=== PATIENT | male | born 1970 | race Caucasian/White ===

== ENCOUNTER 2020-01-28 07:43 | Outpatient (REF) | payer OTHER, SELFPAY | END 2020-01-28 07:44 | disposition home or self-care (01) | LOC: HO.LAB 07:43 | PROVIDERS: Visit Provider Internal Medicine | DX: Z20.828 Contact with and (suspected) exposure to other viral communicable diseases (principal) | CPT/HCPCS: C9803; U0003 ==

== ENCOUNTER 2020-02-03 07:09 | Outpatient (REF) | payer OTHER, SELFPAY ==
[2020-02-03 08:00] LABS: COVID-19 Test Negative (Negative)
== END 2020-02-03 07:10 | disposition home or self-care (01) ==
LOC: HO.LAB 07:09
PROVIDERS: Visit Provider Internal Medicine
DX: Z20.828 Contact with and (suspected) exposure to other viral communicable diseases (principal)
CPT/HCPCS: 87635; C9803

== ENCOUNTER 2021-06-27 15:37 | Emergency (ER) | payer OTHER, SELFPAY ==
--- NOTE | ~2021-06-27 | XR_ITS ---
EXAMINATION: XR FINGER, LEFT CLINICAL INFORMATION: Left ring finger injury. Question fracture. COMPARISON: None TECHNIQUE: 3 views of the left ring finger including AP view of the hand FINDINGS: The bones and soft tissues are normal. No fracture. Alignment is anatomic. Joint spaces are maintained. XR/XR finger LT min 2V IMPRESSION: Normal x-ray series of the ring finger. No fracture
[2021-06-27 16:02] VITALS: BP 155/89; PULSE 89; RESP 16; TEMP 36.7; O2SAT 97; BMI 33.4
--- NOTE | 2021-06-27 16:27 | ED_ITS ---
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 Patient states yesterday he slammed the door on his left 5th finger by accident. Patient has slight laceration to tip of finger and dry blood under the nail. Patient really denies any pain. Patient has complete range of motion of finger and sensation. Patient came to the ED to be evaluated. Related Data Allergies Allergy/AdvReac Type Severity Reaction Status Date / Time No Known Allergies Allergy Verified 06/27/21 16:04 Review of Systems Review of Systems: left ring finger injury Yes all other systems are reviewed and are negative [facility] Past Medical History Medical History (Updated 06/28/21 @ 00:01 by Background Daemon) No known health problems Social History Social History Advance Directives: No Advance Directives Information Provided: No Physical Exam ED Vital Signs: Vital Signs - 24 hr 06/27/21 16:02 Temperature 98.0 F Pulse Rate 89 Respiratory Rate 16 Blood Pressure 155/89 H Pulse Oximetry 97 BMI result Body Mass Index 33.4 Const General: cooperative, healthy appearing, comfortable, no acute distress, well developed, alert, awake and Physically active Orientation/consciousness: patient oriented x3 HENMT Head: Yes normal to inspection, Yes No palpable skull fracture present, Yes normocephalic, Yes atraumatic and No abrasion Eyes General: appearance normal, both eyes and all related structures Neck Neck: Yes normal visual inspection, Yes full ROM, Yes no lymphadenopathy, Yes no meningeal signs, Yes trachea midline, Yes supple, No anterior neck swelling and No tender Chest Chest palpation & inspection: normal inspection of the chest and normal palpation of entire chest wall Resp Effort & Inspection: normal respiratory effort and able to speak in complete sentences Auscultation: clear to auscultation bilaterally Cardio Jugular venous distension: no JVD Heart sounds: S1 normal heart sound present and S2 normal heart sound present GI Inspection: Yes normal to inspection and No abdominal wall ecchymosis Palpation (GI): Soft to palpation, not firm, nontender, no guarding and not rigid General: No CVA tenderness and Yes no CVA tenderness Back/Spine/Pelvis Back: no CVA tenderness, No CVA tenderness and No back tenderness Skin General skin exam: no rashes or lesions noted and elasticity normal Neuro General: patient oriented x3, gait normal and no meningeal signs Cranial nerves: Yes CN's II-XII intact bilaterally Extrem General: Yes normal to inspection and Yes full ROM Hand/finger images: 1. Small very super ficial clean laceration more abrasion that occurred yesterday. No active bleeding. Patient has complete range of motion of finger. 2. Positive for subungual hematoma. Nail still attached to nail bed matrix but is raised. nail Will soon come off on it's own. left upper extremity motor, neuro, and vascular exam is intact. Psych Appearance: grossly normal, well kempt and not disheveled Course Course Course Narrative: Sent for x-ray. T dap ordered Reevaluation(s) Reevaluation #1: X-ray came back negative for any fracture. Patient healthy no medical history. Negative for any diabetes or immunocompromise diseases. Patient was educated on trephination for subungual hematoma and possible nail removal. patient preferred not to have trephination uncle hematoma prefer no other to fall off on its own. Nail still connected to matrix and nail bed. No antibiotics needed Time: 17:28 Medical Decision Making MDM Narrative Medical decision making narrative: Subungual hematoma Discharge Plan Discharge Clinical Impression: Subungual hematoma of finger Patient Disposition: Home, Self-Care Instructions: Subungual Hematoma (ED) Additional Instructions: Subungual hematoma will self resolve. Nail will fall off on its own. Return to the ED immediately for any swelling, redness, pus discharge, foul odor, inability to move finger, fever, chills, bluish black discoloration, or any other concerning symptoms. Please follow-up with primary care provider soon as possible. Stand Alone Forms: Work/School Release Interventions: ED Discharge Assessment Last Done: 06/27/21 17:38 Discharge Date/Time: 06/27/21 17:40 Print Language: Montserratian
[2021-06-27] MEDS: Diphth,Pertus(ACell),Tet Adult 0.5 ML SYRINGE IM (16:51)
== END 2021-06-27 17:40 | disposition home or self-care (01) ==
PROVIDERS: Emergency Provider Emergency Medicine; PCP Internal Medicine
DX: S60.142A Contusion of left ring finger with damage to nail, initial encounter (principal); S60.415A Abrasion of left ring finger, initial encounter; W23.0XXA Caught, crushed, jammed, or pinched between moving objects, initial encounter; Y93.9 Activity, unspecified; Y92.9 Unspecified place or not applicable; Y99.9 Unspecified external cause status
CPT/HCPCS: 73140; 90471; 90715; 99283; 99284

== ENCOUNTER 2021-06-29 11:41 | Outpatient (REF) | payer OTHER, SELFPAY ==
[2021-06-29 13:31] LABS: MANUAL DIFF FLAG NO
[2021-06-29 13:45] LABS: Basophils Absolute Auto 0.1 X10*3/uL (0.0-0.2); Basophils Percent Auto 1.1 % (0-2); Eosinophils Absolute Auto 0.5 X10*3/uL (0.0-0.4); Eosinophils Percent Auto 7.2 % (0-4); Hematocrit 45.7 % (42.0-52.0); Hemoglobin 15.3 g/dl (14.0-18.0); Imm Gran Abs Auto 0.02 X10*3/uL (0.00-0.03); Imm Gran Pct Auto 0.3 % (0.0-0.4); Lymphocytes Absolute Auto 1.2 X10*3/uL (1.2-4.9); Lymphocytes Percent Auto 18.5 % (20-40); Mean Corpuscular HGB Conc 33.5 g/dl (31.0-36.0); Mean Corpuscular Hemoglobin 29.8 pg (27.0-33.0); Mean Corpuscular Volume 89.1 fL (80.0-98.0); Mean Platelet Volume 10.8 fL (9.4-12.4); Monocytes Absolute Auto 0.6 X10*3/uL (0.1-1.2); Monocytes Percent Auto 9.5 % (2-11); Neutrophils Absolute Auto 4.1 x10*3/uL (2.0-8.3); Neutrophils Percent Auto 63.4 % (45-73); Platelet Count 262 X10*3/uL (160-400); Red Blood Count 5.13 X10*6/uL (4.60-5.80); Red Cell Distribution Width 13.4 % (11.0-16.0); White Blood Count 6.5 X10*3/uL (4.8-10.8)
[2021-06-29 14:03] LABS: Alanine Aminotransferase 31 U/L (0-40); Albumin Level 4.4 g/dL (3.5-5.0); Alkaline Phosphatase 65 U/L (39-117); Anion Gap 13 (12-20); Aspartate Amino Transferase 18 U/L (5-37); Bilirubin Total 0.3 mg/dL (0.0-1.0); Blood Urea Nitrogen 13 mg/dL (9-16); Carbon Dioxide 25 mmol/L (22-29); Chloride 106 mmol/L (96-108); Estimated Glomerular Filt Rate > 60; Glucose Random 106 mg/dL (60-115); Iron 76 mcg/dL (45-160); Percent Iron Saturation 24 % (15-50); Potassium 4.2 mmol/L (3.3-5.1); Sodium 140 mmol/L (135-145); Total Iron Binding Capacity 323 mcg/dL (228-428); Unsaturated Iron Binding 247 ug/dL
[2021-06-29 14:30] LABS: Ferritin 388 ng/mL (20-250); Free T4 (Free Thyroxine) 0.94 ng/dL (0.71-1.85); Thyroid Stimulating Hormone 2.17 uIU/mL (0.32-4.0); Vitamin D 25-OH Total 20.8 ng/mL (>30)
[2021-06-29 14:44] LABS: Vitamin B12 350 pg/mL (200-900)
[2021-07-04 16:07] LABS: Testosterone, Total 176 ng/dL (250-1100)
== END 2021-06-29 11:42 | disposition home or self-care (01) ==
LOC: HO.MANLDS 11:41
PROVIDERS: PCP Physician Assistant; Visit Provider Physician Assistant
DX: R53.83 Other fatigue (principal)
CPT/HCPCS: 36415; 80053; 82306; 82607; 82728; 82746; 83540; 84402; 84403; 84439; 84443; 85025

== ENCOUNTER 2021-08-20 11:00 | Outpatient (REF) | payer OTHER, SELFPAY ==
[2021-08-20 13:53] LABS: MANUAL DIFF FLAG NO
[2021-08-20 14:02] LABS: Basophils Absolute Auto 0.1 X10*3/uL (0.0-0.2); Basophils Percent Auto 1.2 % (0-2); Eosinophils Absolute Auto 0.3 X10*3/uL (0.0-0.4); Eosinophils Percent Auto 6.1 % (0-4); Hematocrit 45.6 % (42.0-52.0); Imm Gran Abs Auto 0.02 X10*3/uL (0.00-0.03); Imm Gran Pct Auto 0.4 % (0.0-0.4); Lymphocytes Absolute Auto 1.2 X10*3/uL (1.2-4.9); Lymphocytes Percent Auto 23.1 % (20-40); Mean Corpuscular HGB Conc 32.9 g/dl (31.0-36.0); Mean Corpuscular Hemoglobin 29.8 pg (27.0-33.0); Mean Corpuscular Volume 90.5 fL (80.0-98.0); Mean Platelet Volume 10.5 fL (9.4-12.4); Monocytes Absolute Auto 0.4 X10*3/uL (0.1-1.2); Monocytes Percent Auto 8.3 % (2-11); Neutrophils Absolute Auto 3.1 x10*3/uL (2.0-8.3); Neutrophils Percent Auto 60.9 % (45-73); Platelet Count 266 X10*3/uL (160-400); Red Blood Count 5.04 X10*6/uL (4.60-5.80); White Blood Count 5.1 X10*3/uL (4.8-10.8)
[2021-08-20 14:30] LABS: Alanine Aminotransferase 32 U/L (0-40); Albumin Level 4.3 g/dL (3.5-5.0); Alkaline Phosphatase 55 U/L (39-117); Anion Gap 14 (12-20); Aspartate Amino Transferase 21 U/L (5-37); Bilirubin Total 0.5 mg/dL (0.0-1.0); Blood Urea Nitrogen 12 mg/dL (9-16); Calcium 9.6 mg/dL (8.4-10.2); Carbon Dioxide 25 mmol/L (22-29); Chloride 105 mmol/L (96-108); Estimated Glomerular Filt Rate > 60; Glucose Random 116 mg/dL (60-115); Iron 126 mcg/dL (45-160); Percent Iron Saturation 37 % (15-50); Potassium 4.5 mmol/L (3.3-5.1); Sodium 139 mmol/L (135-145); Total Iron Binding Capacity 338 mcg/dL (228-428); Total Protein 7.9 g/dL (6.5-8.0); Unsaturated Iron Binding 212 ug/dL
[2021-08-20 14:46] LABS: Folate 7.6 ng/mL (> or = 4.0); Vitamin B12 317 pg/mL (200-900)
[2021-08-20 14:52] LABS: Ferritin 377 ng/mL (20-250); Thyroid Stimulating Hormone 2.51 uIU/mL (0.32-4.0); Vitamin D 25-OH Total 35.6 ng/mL (>30)
[2021-08-27 09:02] LABS: Testosterone, Free 60.6 pg/mL (35.0-155.0); Testosterone, Total 228 ng/dL (250-1100)
== END 2021-08-20 11:01 | disposition home or self-care (01) ==
LOC: HO.MANLDS 11:00
PROVIDERS: Visit Provider Physician Assistant
DX: R53.83 Other fatigue (principal)
CPT/HCPCS: 36415; 80053; 82306; 82607; 82728; 82746; 83540; 84402; 84403; 84439; 84443; 85025

== ENCOUNTER → 2024-04-05 13:39 | Outpatient (BNV) | payer OTHER, SELFPAY | PROVIDERS: PCP Physician Assistant; Visit Provider Radiology Diagnostic Radiology | DX: R05.9 Cough, unspecified (principal) | CPT/HCPCS: 71260 ==

== ENCOUNTER 2024-06-04 15:32 | Outpatient (REF) | payer OTHER, SELFPAY ==
--- NOTE | ~2024-06-04 | CT_ITS ---
CLINICAL HISTORY: chronic cough CT chest without contrast Comparison: CT/SR - CT CHEST W IV CON - 04/05/24 13:56 EST Findings: Normal heart size. No significant pericardial effusion. Calcific coronary artery disease: None. Stable shotty mediastinal lymph nodes. No mediastinal masses or fluid collections. Mild bronchial wall thickening. Improvement in the reticular nodular opacities right base likely inflammatory. No pneumothorax or pleural effusions, plaques or calcifications. Central airways are patent. No bronchiectasis. No thyroid nodules. No chest wall masses. No axillary adenopathy. Hepatic steatosis. No acute fractures or pathologic bone lesions. Impression: 1. Stable bronchial wall thickening. Improvement in the reticular nodular opacities right lower lobe likely resolving inflammatory process. No airspace disease. No pleural effusion. 2. Hepatic steatosis. This document has been electronically signed by: Montrell Wright MD on 06/07/2024 10:51:43
--- OUTSIDE RECORDS SUMMARY | 2024-06-04 16:41 | XMS_ITS ---
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 Generated for Bessie barnes/Cesar/eTransmitting on:?06/04/2024 04:41 PM EDT
--- OUTSIDE RECORDS SUMMARY | 2024-06-04 16:41 | XMS_ITS ---
Author Organization [facility] Address [address] [place] [address] Care Team Providers Care Director Custom Name Role Phone Stephon Zuniga MD Primary Care Provider Ervin Louis Unavailable [phone] Allergies No Known Allergies REASON FOR VISIT Heel pain Social History Tobacco Use: Social History Observation Description Date Details (start date - stop date) Never Smoker NA - NA Tobacco Use/Smoking Question Answer Notes Are you a: nonsmoker Additional Findings: Tobacco Non-User Current no n-smoker Tobacco use other than smoking: Question Answer Notes Are you an other tobacco user? No Problems Problem Type SNOMED Code ICD Code Onset Dates Problem Status W/U Status Risk Notes Problem Interstitial myositis (43339287) Interstitial myositis of left foot (M60.172) Active confirmed Vital Signs Height 5 ft 8 in in 06/27/2023 Weight 220 lbs 06/27/2023 BMI 33.45 kg/m2 06/27/2023 Encounters Encounter Location Date Provider Diagnosis [facility] [address] [place] [address] 06/27/2023 Ervin Neri Pain in left foot M79.672 ; Plantar fasciitis of left foot M72.2 ; Calcaneal spur, left foot M77.32 ; Interstitial myositis of left foot M60.172 and Bursitis of left foot M77.52 Assessments Encounter Date Diagnosis (ICD Code) Assessment Notes Treatment Notes Treatment Clinical Notes Section Notes 06/27/2023 Pain in left foot (ICD-10 - M79.672) 06/27/2023 Plantar fasciitis of left foot (ICD-10 - M72.2) Patient Educated with: HEEL CORD STRETCHES.pdf (HEEL CORD STRETCHES.pdf) Patient Educated with: RICE THERAPY.pdf (RICE THERAPY.pdf) 06/27/2023 Calcaneal spur, left foot (ICD-10 - M77.32) 06/27/2023 Interstitial myositis of left foot (ICD-10 - M60.172) 06/27/2023 Bursitis of left foot (ICD-10 - M77.52) Plan Of Treatment Treatment Notes Assessment Notes Plantar fasciitis of left foot Patient E ducated with: HEEL CORD STRETCHES.pdf (HEEL CORD STRETCHES.pdf) Patient Educated with: RICE THERAPY.pdf (RICE THERAPY.pdf) Pending Test Test Name Order Date X ray : Foot, left 3V 06/27/2023 Next Appt Details Follow Up: prn, Reason: Per Pt Request Progress Notes * Maciej LARA PDOB:[birth year] (52 yo M)Acc No.[id number]:06/27/2023 Progress Notes Patient:?Maciej Lara P Provider:?Ervin Neri DPM :1970???Age:52 Y???Sex:Male Arthur e:06/27/2023 Address:[address] [place], [place] [id number] Pcp:Stephon Zuniga MD Subjective: * Chief Complaints: * ???Heel pain * HPI: ???Heel pain:?Location:?Proximal plantar aspect of Heel, LEFT.?Duration:?several months.?Course:?worse.?Aggrevated:?standing, walking, walking first thing in the morning/after rest.?Treatments:?rest/alter normal daily activity , ice , medication ( Motrin prn).? * ROS:?General/Constitutional:?Nausea?denies.?Vomiting?denies.?Hunger Thirst?denies.?Loss appetite?denies.?Chills?denies.?Fatigue?denies.?Fever?denies.?Night Sweats?denies.?Unexplained weight loss?denies.?Unexplained weight gain?denies.?HEENTM:?Dentures?denies.?Dizziness?denies.?Glasses/contacts?admits.?Retinopathy?de nies.?Blurred/double vision?denies.?TMJ?denies.?Discharge/drainage?denies.?Implants?denies.?Sore throat?denies.?Dental implants?denies.?Hard of hearing ?denies.?Difficulty chewing/swallowing/speaking?denies.?Nose bleeds?denies.?Sore mouth?denies.?Respiratory:?On Oxygen?denies.?Pneumonia/pleurisy?denies.?Bronchitis?denies.?Emphysema?denies.?C oughing?denies.?Cough blood?denies.?Shortness of breath?denies.?Wheezing?denies.?Cardiovascular:?Pacemaker?denies.?MVP?denies.?WPW?denies.?CHF?denies.?Heart attack?denies.?Septal defect?denies.?Rapid beat?denies.?Chest pain ?denies.?Atrial Fib.?denies.?Murmur/Palpitations?denies.?Gastrointestinal:?Hemorrhoids?denies.?Stomach/Abdominal pain?denies.?Dark blood stool?denies.?Irritable bowel ?denies.?Constipation?denies.?Diarrhea?denies.?Hematology:?Swelling?denies.?Clots?denies.?Varicose Veins?denies.?Bruising?denies.?Bleeding problem?denies.?Genitourinary:?Blood urine?denies.?Frequent/Painfu/urination/bladder control?denies.?Kidney stones?denies.?Infection (UTI)?denies.?Nephropathy?denies.?sex trans dis (STD)?denies.?Prostate?denies.?Musculoskeletal:?Hammertoes?denies.?Bunions?denies.?Back Pain?denies.?Muscle Cramps/ Resting?denies.?Muscle cramps / walking?denies.?Generalized aches and pains?denies.?Weakness?denies.?Integ.:?Echols?denies.?Scars?denies.?Corns/calluses?denies.?Ingrown nails?denies.?Painful nails?denies.?Open Sores?denies.?Rashes?denies.?Neurologic:?Difficulty sleeping?denies.?Brain disorder?denies.?Numbness?denies.?Balance trouble?denies.?Confusion?denies.?Fainting/blackouts?denies.?Tingling?denies.?Tr emors?denies.? * Medical History:? * Surgical History:?colon 04/16 * Hospitalization/Major Diagno stic Procedure:?Denies Past Hospitalization * Family History:?Mother: mark choi?Father: , diagnosed with Other malignant neoplasm of unspecified site.? * Social History:?Tobacco Use:?Tobacco Use/Smoking?Are you a:?nonsmoker ?Additional Findings: Tobacco Non-User?Current non-smoker ?Tobacco use other than smoking?Are you an other tobacco user??No ???Miscellaneous:?Caffeine: yes, frequency: 3x a day. ?Marital status: single. 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 * Medications:?None * Allergies:?N.K.D.A.yes[Aller gies Verified] Objective: * Vitals:?Ht: 5 ft 8 in, Wt: 2 20, BMI:33.45, Shoe size: 10.5 w. * Examination: ???Heel Pain: ?INSPECTION:? Pain on Palpation to Plantar Fascia med. and central bands, intrinsic musc., infra-calcaneal bursa, and med calc tubercle , LEFT foot, No pain: posterior/superior heel, achilles bursa/tendon, sinus tarsi, peroneals, or with lateral heel compression; no limited STJ ROM, calor, or ecchymosis.?Orthopedic: ?MUSCLE STRENGTH:?5/5 all groups in a symmetrical fashion , B/L.?GAIT ABNORMALITY:?antalgic.?FOOT MORPHOLOGY:?Pes Cavus structure, Decreased Ankle joint dorsiflexion ROM, knee extended.?X-Rays - IMAGING REPORT: ?Clinical Indication(s):? Evaluate for Fracture, Evaluate Biomechanical Deformity.?Views:? 3 views of Foot, LAT, LO, MO, LEFT.?Findings:? normal bone and soft tissue density consistent for patients age and sex, navicular/cuneiform plantar subluxation with anterior cyma line, positive infra-calcaneal exostosis, no coalitions identified.?Foot structure:? reveals excess pronation with, anterior break in cyme line, increased talar declination, decreased calcaneal inclination.?Fracture:?Negative fractures identified.?Neurological: ?SENSORY:?Neurological exam reveals intact sensorium, pain sensation normal, vibration sensation intact, pinprick sensation is normal in the lower extremities, Pt denies, anesthesia, burning, paresthesia, tingling, B/L.?TINEL'S COMPRESSION:?Negative tarsal tunnel, oj pedis, and medial calcaneal nerves.?DEEP TENDON REFLEXES:?Achilles, 2/4, B/L.?General Examination: ?GENERAL APPEARANCE:?Reveals a pleasant, alert, well-nourished, well- developed, well hydrated individual, who demonstrates proper attention to hygiene/body habitus, and is in no acute distress, Pt serves as own?historian for office visit today.?ORIENTED:?person, place, and time.?Vascular: ?DP PULSES:?3/4, B/L.?PT PULSES:?3/4, B/L.?CAPILLARY FILL TIME:?immediate, all digits, B/L.?SKIN TEMPERTURE GRADIENT OF THE LOWER EXTERMITIES:?warm to cool, proximal to distal, B/L.?HAIR GROWTH/TEXTURE/ELASTICITY/TURGOR:?normal, B/L.?PIGMENTATION:?normal, B/L.?EDEMA:?absent, B/L.?Dermatologic: ?SKIN FINDINGS:?Skin exam reveals normal texture, elasticity, and turgor. There are no masses. The interspaces are clear.? 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 Plan: * Treatment: 2.?Plantar fasciitis of left foot? Notes: Patient Educated with: HEEL CORD STRETCHES.pdf (HEEL CORD STRETCHES.pdf) Patient Educated with: RICE THERAPY.pdf (RICE THERAPY.pdf)?? * Procedure Codes:?92444 X-RAY EXAM OF LEFT FOOT 3V, Modifiers: 26 , LT * Preventive Medicine:? ??Counseling:?Discussion:?-04: Office or other outpatient visit for the evaluation and management of a new patient, which required a medically appropriate history and/or examination and MODERATE level of DECISION MAKING for: 1 OR MORE CHRONIC PROBLEM(S) THATS WORSENING, 2 STABLE CHRONIC PROBLEMS, A NEWLY DIAGNOSED PROBLEM WITH UNCERTAIN PROGNOSIS, AN ACUTE COMPLICATED INJURY WITH MULTIPLE TREATMENT OPTIONS, OR AN ACUTE PROBLEM WITH ACCOMPANYING SYSTEMIC SYMPTOMS, THAT POSE(S) A MODERATE RISK OF MORBIDITY. THIS CONDITION MAY ALSO INCLUDE RX DRUG MANAGEMENT, OR A DECISON FOR MINOR SURGERY. The visit on the day of the encounter encompassed interpreting the data and educating the patient as to the nature of their condition, treatment options available according to their individual PMH, meds, allergies, and overall health/living conditions, as well as any potential risks or complications that may occur from a failure to adhere to, and participate in, the recommended course of therapy. The discussion included a complete verbal, and/or written explanation of the examination results, any x-rays taken, the proposed diagnosis, and outline of the treatment plan. A schedule for future care needs was also explained. The patient verbalized an understanding of the instructions at this time and agreed to be an active participant in their treatment. If the patient should think of any questions or concerns after the visit, I have encouraged the patient to call the office.?Heel pain:?FASCIITIS: I explained to the patient the possible etiologies of Plantar Fasciitis including foot type/shoegear/activity level/exercise routine and the risks/benefits of all the different treatment options for heel pain including: No treatment at all, Rest, Ice, NSAIDs(only if well tolerated after meals), New/supportive Shoegear, Strappings and Tapings, Stretching exercises, Deep Tissue Massage, Heel cups/cushions, Arch support/shoe inserts, Custom orthoses, Topical analgesics including Aspercream/Voltaren gel, Night splint AFO for am stiffness, Cortisone injection therapy, Cast boot with crutches/cane/or walker for assisted ambulation, Physical Therapy, EPAT/ESWT, Interfil injection therapy, as well as surgical [place]/Endoscopic Fasciitomy surgical procedures if needed. Recommendations were made to limit barefoot walking, eliminate wearing nonsupportive shoegear (i.e. flip-flops or sandals, or a shoe with an easily bendable, foldable, or twistable sole) and wear shoegear with a good solid sole, a supportive arch, and plenty of room for an insert/orthotic if necessary. If wearing sandals was required by the patient, we recommended orthopedic sandals such as Orthoheel or Birkenstock even while in the home. If the patient wore heels in the past, we recommended they continue, but eliminate the use of flats. The advantages and disadvantages of each option were discussed and the patients questions re: types of shoegear, custom vs prefabricated inserts, activity level, PO vs Topical medications (and their respective potential complications/drug interactions/side effects), and consistency in home treatment regimens for optimal success were answered to their satisfaction. Literature detailing plantar fasciitis and the various treatment options were dispensed and reviewed.?Orthotics:?I explained to the patient the benefits of OT use. I explained that orthoses are medically necessary to decrease the foot pain through proper mechanical control, support of their foot , decrease stretch/strain on the plantar fascia.?P.R.I.C.E.:?The patient was counseled on the use of P.R.I.C.E. and NSAIDS (if well tolerated) to aid in the recovery from their painful condition.?Shoe Gear Counseling:?The patient and I reviewed the types of shoes they should be wearing. My recommendation included obtaining a well-fitted shoe with a good supportive, non-foldable nor twistable sole, plenty of toe/room for the forefoot, and proper arch support. Based on todays examination, I recommended the patient look for new shoes, by having their feet professionally measured. We discussed that generally the best time of the day for a shoe fitting is the afternoon. Different shoes types and brands to best match the patients occupation and vocation were discussed. Specific brand selection will be up to the patient, their individual foot condition/deformities, and fit. The patient and I reviewed the standard new shoe break in period by wearing them for a few hours a day while checking for redness or sores as wear time is increased. The patient verbally confirmed to understanding the information discussed.?Stretching Exercises:?Stretching and deep tissue massage exercises for the patients injury/diagnosis were discussed and demonstrated, handouts were dispensed.? * Follow Up:?prn (Reason: Per Pt Request) * Images: * Sign off status: Completed true * Provider:?Ervin Neri DPM Date:?2023 Generated for Bessie barnes/Cesar/eTransmitting on:?06/04/2024 04:41 PM EDT History and Physical Notes * HPI (History of Present Illness) Category Sub-Category Detail Notes Category Not es Heel pain Duration: several months Location: Proximal plantar asp ect of Heel, LEFT Aggravated: standing, walking, w alking first thing in the morning/after rest Course: worse Treatments: rest/alter normal da grabiel activity , ice , medication ( Motrin prn) Examination Category Sub-Category Detail Notes Category Not es Neurological SENSORY: Neurological exa m reveals intact sensorium, pain sensation normal, vibration sensation intact, pinprick sensation is normal in the lower extremities, Pt denies, anesthesia, burning, paresthesia, tingling, B/L TINEL'S COMPRESSION: Negative tarsal sabino eben, oj pedis, and medial calcaneal nerves DEEP TENDON REFLEXES: Achilles, 2/4, B/L Dermatologic SKIN FINDINGS: Skin exam reveal s normal texture, elasticity, and turgor. There are no masses. The interspaces are clear Orthopedic GAIT ABNORMALITY: antalgic FOOT MORPHOLOGY: Pes Cavus structure, Decreased Ankle joint dorsiflexion ROM, knee extended MUSCLE STRENGTH: 5/5 all groups in a symmetrical fashion , B/L General Examination GENERAL APPEARANCE: Reveals a pleasant, alert, well- nourished, well-developed, well hydrated individual, who demonstrates proper attention to hygiene/body habitus, and is in no acute distress, Pt serves as own historian for office visit today ORIENTED: person, place, and t rhianna Vascular DP PULSES (B): 3/4, B/L PT PULSES (B): 3/4, B/L CAPILLARY FILL TIME: immediate, all digi ts, B/L TEMPERTURE GRADIENT (C): warm to cool, p roximal to distal, B/L TROPHIC CONDITION-TEXTURE/ELASTICITY/TURGOR/HAIR GROWTH (B): normal, B/L EDEMA (C): absent, B/L PIGMENTATION: normal, B/L X-Rays - IMAGING REPORT Findings: normal b one and soft tissue density consistent for patients age and sex, navicular/cuneiform plantar subluxation with anterior cyma line, positive infra-calcaneal exostosis, no coalitions identified Fracture: Negative fractures i dentified Foot structure: reveals excess prona tion with, anterior break in cyme line, increased talar declination, decreased calcaneal inclination Views: 3 views of Foot, LAT , LO, MO, LEFT Clinical Indication(s): Evaluate for Fra cture, Evaluate Biomechanical Deformity Heel Pain INSPECTION: Pain on Palpatio n to Plantar Fascia med. and central bands, intrinsic musc., infra-calcaneal bursa, and med calc tubercle , LEFT foot, No pain: posterior/superior heel, achilles bursa/tendon, sinus tarsi, peroneals, or with lateral heel compression; no limited STJ ROM, calor, or ecchymosis
--- OUTSIDE RECORDS SUMMARY | 2024-06-04 16:41 | XMS_ITS ---
Author Organization [facility] Address [address] [address] Care Team Providers Care Recycling Operator Name Role Phone TANIKA Delong Primary Care Provider Unavailab PATT Cano Unavailable [phone] Allergies Allergen (clinical drug ingredient) Drug/Non Drug Allergy documented on EMR Reaction Allergy Type Onset Date Status amoxicillin / clavulanate Augmentin diarrhea Drug Allergy Active REASON FOR VISIT PCP Referral for 2nd opinion on plantar fasciitis Medications Medication SIG (Take, Route, Fr equency, Duration) Notes Start Date End Date Status Testosterone 1.62 % 1 pump to skin in morning to shoulder, upper arms or abdomen Transdermal Once a day Not-Taking Tadalafil 20 MG 1 tablet as needed O rally Once a day Active Ibuprofen 800 MG 1 tablet with food o r milk as needed Orally every 8 hrs Not -Taking Problems Problem Type SNOMED Code ICD Code Onset Dates Problem Status W/U Status Risk Notes Problem [id number] Plantar fasciitis, bilateral (M72.2) Active confirmed Vital Signs Temperature 97.4 degrees Fahrenheit 02/06/20 24 Heart Rate 84 /min 02/06/2024 Respiratory Rate 16 /min 02/06/2024 Height 5ft 8in in 02/06/2024 Weight 238.4 lbs 02/06/2024 BMI 36.24 kg/m2 02/06/2024 Encounters Encounter Location Date Provider Diagnosis [facility] [address] [place] [id number] 02/06/2024 PATT MARTÍNEZ Plantar fasciitis, bilateral M72.2 ; Pain in right foot M79.671 and Pain in left foot M79.672 Assessments Encounter Date Diagnosis (ICD Code) Assessment Notes Treatment Notes Treatment Clinical Notes Section Notes 02/06/2024 Plantar fasciitis, bilateral (ICD-10 - M72.2) This is an outpatient visit for evaluation and management of a new patient, which required appropriate review of pertinent medical history, review of any previous imaging, review of all previous records, and examination and decision-making. Time was 45 minutes spent in review of all these facets including face to face discussion with the patient regarding my findings and in discussion of a current and future treatment plan. I reviewed the results of his x-rays we discussed his high arch type. I also reviewed he accessory sesamoids on both feet. Discussed the pathology of plantar fasciitis, what that means and how it affects the patient's ADL. Reviewed stretching and icing exercises with the patient, handout dispensed, and patient instructed to perform twice daily for the next 6 weeks. Recommended starting a course of NSAIDS with the patient. Discussed proper shoe gear with the patient and recommended over the counter inserts, handout dispensed. I also recommended he avoid barefoot walking. We discussed physical therapy, ECSWT, PRP injections, and steroid injections. He is going to start physical therapy and cryotherapy for the plantar fasciitis by his house. I recommended a follow-up in 8 weeks. If no real improvement, we discussed trying a steroid injection. He is in agreement with this plan. 02/06/2024 Pain in right foot (ICD-10 - M79.671) 02/06/2024 Pain in left foot (ICD-10 - M79.672) Plan Of Treatment Treatment Notes Assessment Notes Plantar fasciitis, bilateral This is an outpatient visit for evaluation and management of a new patient, which required appropriate review of pertinent medical history, review of any previous imaging, review of all previous records, and examination and decision-making. Time was 45 minutes spent in review of all these facets including face to face discussion with the patient regarding my findings and in discussion of a current and future treatment plan. I reviewed the results of his x-rays we discussed his high arch type. I also reviewed he accessory sesamoids on both feet. Discussed the pathology of plantar fasciitis, what that means and how it affects the patient's ADL. Reviewed stretching and icing exercises with the patient, handout dispensed, and patient instructed to perform twice daily for the next 6 weeks. Recommended starting a course of NSAIDS with the patient. Discussed proper shoe gear with the patient and recommended over the counter inserts, handout dispensed. I also recommended he avoid barefoot walking. We discussed physical therapy, ECSWT, PRP injections, and steroid injections. He is going to start physical therapy and cryotherapy for the plantar fasciitis by his house. I recommended a follow-up in 8 weeks. If no real improvement, we discussed trying a steroid injection. He is in agreement with this plan. Pending Test Test Name Order Date X ray : Foot, left 3v 02/06/2024 X ray : Foot, right 3v 02/06/2024 Next Appt Details Follow Up: 2 Months, Reason: Progress Notes * Maciej EASTONDOB:1970 (53 yo M)Acc No.[id number]:02/06/2024 Consult note Patient:?Maciej EASTON Provider:?Patt Martínez DPM :1970???Age:53 Y???Sex:Male Arthur e:02/06/2024 Phone: Address:[address] [place] [id number] Pcp:TANIKA Delong Subjective: * Chief Complaints: * ???PCP Referral for 2nd opin ion on plantar fasciitis * HPI: ???Constitutional:? This 53 y/o male presents to my office with a complaint of bilateral heel pain for approximately 1 year. He denies any trauma or injury to his feet. He states the pain started in the left heel, but it is now in both heels. He has tried changing his shoes and wearing inserts without improvement. He has tried stretching exercises with limited improvement. He went to his PCP care team, and they prescribed him ibuprofen 800mg, but it only provides temporary relief. He did see another switch maker in July who just told him to keep using the inserts and stretching. He describes the pain as sharp and sometimes burning sensation. He was very active and usually goes on long hikes. He has been unable to do so since this problem started. He has no other foot complaints this visit. Allergies and medical history reviewed. * ROS:?GENERAL: Pt denies nausea, fever, vomiting, chills, or shortness of breath. Pt in NAD. ALLERGY: patient denies any new allergy HEME/ONC: patient denies any bleeding or clotting disorders CARDIOLOGY: pt denies chest pain, palpitations LUNGS: pt denies shortness of breath ABDOMEN: patient denies any bloating, abdominal pain, or swelling MUSCULOSKELETAL: See HPI, has left sided joint pain SKIN: see HPI, otherwise no lesions, rash or itching NEURO: No persistent headache, weakness or numbness PSYCH: patient denies any current anxiety or depression The remainder of the review of systems is noncontributory. * Medical History:? * Surgical History:?colonoscop y 03/26colon resection 2013 * Hospitalization/Major Diagno stic Procedure:?colon resection 2013 * Family History:?Father: panc reatic cancer, hypertension.? * Social History:?tobacco: no alcohol: yes, occasional. * Medications:?TakingTadalafil 20 MG Tablet 1 tablet as needed Orally Once a day Taking Tadalafil 20 MG Tablet 1 tablet as needed Orally Once a day Not- TakingTestosterone 1.62 % Gel 1 pump to skin in the morning to shoulder, upper arms or abdomen Transdermal Once a day Ibuprofen 800 MG Tablet 1 tablet with food or milk as needed Orally every 8 hrs Medication List reviewed and reconciled with the patientNot- Taking Testosterone 1.62 % Gel 1 pump to skin in the morning to shoulder, upper arms or abdomen Transdermal Once a day Not-Taking Ibuprofen 800 MG Tablet 1 tablet with food or milk as needed Orally every 8 hrs Medication List reviewed and reconciled with the patient * Allergies:?Augmentin: vale ea - Allergyken[Allergies Verified] Objective: * Vitals:?Wt:238.4lbs, Ht: 5ft 8in, BMI:36.24Index, HR:84/min, Temp:97.4F, RR:16/min, Ht-cm: 172.72, Wt-k.14 kg. * Examination: ???General Examination: ???GENERAL: Patient appears well nourished, with NAD. ?VASCULAR: Dorsalis pedis pulses are 2/4 bilaterally and Posterior tibial pulses are 2/4 bilaterally. Capillary filling time within normal limits the digits. Each foot temperature is within normal limits. ?NEUROLOGICAL: Sharp/dull sensation intact bilaterally, position sense intact bilaterally to the tibial tuberosity. ?ORTHOPEDIC: Good muscle strength 4+/5 of all flexors and extensors. Dorsi flexion of ankle ,0 degrees, plantar flexion WNL. No muscle atrophy. Cavus foot type bilaterally. No pain on palpation of the distal Achilles bilaterally, no pain on compression of the heels. Tenderness on palpation of the plantar heel bilaterally. ?DERMATOLOGICAL: No masses, openings, or skin lesions noted. Normal skin temperature, normal skin turgor. ?BIOMECHANICS: STJ ROM limited, MTJ ROM limited, 1st MPJ ROM limited. On weight-bearing, cavus foot type. ?SHOES: sneakers. Therapeutic Interventions: Assessment: * Assessment: 1.?Plantar fasciitis, bilate ral - M72.2 (Primary)?2.?Pain in right foot - M79.671?3.?Pain in left foot - M79.672? Plan: * Treatment: ?Imaging: X ray : Foot, right 3v* RIGHT FOOT WEIGHT BEARING X- RAYS 3 VIEWS. There is evidence of bipartite sesamoids under the 1st metatarsal head. Slight subluxation of the interphalangeal joint of the right hallux. Adductovarus and hammer toes of toes 2,3,4,5. Synostosis of the distal and middle phalanx of the 5th toe. There are accessory sesamoids noted plantar to all lesser metatarsal heads. On the lateral view, hammering of all 5 toes. There is an increased calcaneal inclination angle consistent with a cavus foot type. No fracture noted. Notes: This is an outpatient visit for evaluation and management of a new patient, which required appropriate review of pertinent medical history, review of any previous imaging, review of all previous records, and examination and decision-making. Time was 45 minutes spent in review of all these facets including face to face discussion with the patient regarding my findings and in discussion of acurrent and future treatment plan. I reviewed the results of his x-rays we discussed his high arch type. I also reviewed he accessory sesamoids on both feet. Discussed the pathology of plantar fasciitis, what that means and how it affects the patient's ADL.Reviewed stretching and icing exercises with the patient, handout dispensed, and patient instructedto perform twice daily for the next 6 weeks. Recommended starting a course of NSAIDS with the patient. Discussed proper shoe gear with the patient and recommended over the counter inserts, handout dispensed. I also recommended he avoid barefoot walking. We discussed physical therapy, ECSWT, PRP injections, and steroid injections. He is going to start physical therapy and cryotherapy for the plantar fasciitis by his house. I recommended a follow-up in 8 weeks. If no real improvement, we discussed trying a steroid injection. He is in agreement with this plan. ??2.?Pain in right foot?Imaging: X ray : Foot, right 3v* RIGHT FOOT WEIGHT BEARING X- RAYS 3 VIEWS. There is evidence of bipartite sesamoids under the 1st metatarsal head. Slight subluxation of the interphalangeal joint of the right hallux. Adductovarus and hammer toes of toes 2,3,4,5. Synostosis of the distal and middle phalanx of the 5th toe. There are accessory sesamoids noted plantar to all lesser metatarsal heads. On the lateral view, hammering of all 5 toes. There is an increased calcaneal inclination angle consistent with a cavus foot type. No fracture noted. 3.?Pain in left foot?Imaging: X ray : Foot, left 3v* LEFT FOOT WEIGHT BEARING X-R AYS 3 VIEWS. There is evidence of bipartite sesamoids under the 1st metatarsal head. Adductovarus and hammer toes of toes 2,3,4,5. Synostosis of the distal and middle phalanx of the 5th toe. There are accessory sesamoids noted plantar to all lesser metatarsal heads. On the lateral view, hammering of all 5 toes. There is an increased calcaneal inclination angle consistent with a cavus foot type. Small plantar calcaneal bone spur noted on the lateral view. No fracture noted. * Procedure Codes:?04881 X-RAY EXAM OF FOOT 3 Views, Units: 2.00 * Follow Up:?2 Months * Billing Information: * Visit Code:? 70522 Office Visit, New Pt., Level 3. * Procedure Codes:? 61616 X-RAY EXAM OF FOOT 3 Views. Units: 2.00. * Sign off status: Completed true * Provider:?Patt Martínez DPM Date:? 02/06/2024 Generated for Bessie barnes/Cesar/Robyn on:?06/04/2024 04:41 PM EDT History and Physical Notes * HPI (History of Present Illness) Category Sub-Category Detail Notes Category Not es Constitutional This 53 y/o m holger presents to my office with a complaint of bilateral heel pain for approximately 1 year. He denies any trauma or injury to his feet. He states the pain started in the left heel, but it is now in both heels. He has tried changing his shoes and wearing inserts without improvement. He has tried stretching exercises with limited improvement. He went to his PCP care team, and they prescribed him ibuprofen 800mg, but it only provides temporary relief. He did see another switch maker in July who just told him to keep using the inserts and stretching. He describes the pain as sharp and sometimes burning sensation. He was very active and usually goes on long hikes. He has been unable to do so since this problem started. He has no other foot complaints this visit. Allergies and medical history reviewed. Examination Category Sub-Category Detail Notes Category Not es General Examination GENERAL: Patient appears well nourished, with NAD. VASCULAR: Dorsalis pedis pulses are 2/4 bilaterally and Posterior tibial pulses are 2/4 bilaterally. Capillary filling time within normal limits the digits. Each foot temperature is within normal limits. NEUROLOGICAL: Sharp/dull sensation intact bilaterally, position sense intact bilaterally to the tibial tuberosity. ORTHOPEDIC: Good muscle strength 4+/5 of all flexors and extensors. Dorsi flexion of ankle ,0 degrees, plantar flexion WNL. No muscle atrophy. Cavus foot type bilaterally. No pain on palpation of the distal Achilles bilaterally, no pain on compression of the heels. Tenderness on palpation of the plantar heel bilaterally. DERMATOLOGICAL: No masses, openings, or skin lesions noted. Normal skin temperature, normal skin turgor. BIOMECHANICS: STJ ROM limited, MTJ ROM limited, 1st MPJ ROM limited. On weight-bearing, cavus foot type. SHOES: sneakers
--- OUTSIDE RECORDS SUMMARY | 2024-06-04 16:41 | XMS_ITS | Patient Health Record ---
Author Organization [facility] Address [address] [address] Care Team Providers Care Sports Management Internship Name Role Phone TANIKA Delong Primary Care Provider Unavailab JENNIFER Cano Unavailable [phone] Allergies Allergen (clinical drug ingredient) Drug/Non Drug Allergy documented on EMR Reaction Allergy Type Onset Date Status amoxicillin / clavulanate Augmentin diarrhea Drug Allergy Active Reason For Referral No Information Medications Medication SIG (Take, Route, Fr equency, Duration) Notes Start Date End Date Status Ibuprofen 800 MG 1 tablet with food o r milk as needed Orally every 8 hrs Not -Taking Testosterone 1.62 % 1 pump to skin in morning to shoulder, upper arms or abdomen Transdermal Once a day Not-Taking Tadalafil 20 MG 1 tablet as needed O rally Once a day Active Problems Problem Type SNOMED Code ICD Code Onset Dates Problem Status W/U Status Risk Notes Problem [id number] Plantar fasciitis, bilateral (M72.2) Active confirmed Vital Signs Heart Rate 84 /min 02/06/2024 Temperature 97.4 degrees Fahrenheit 02/06/2024 Respiratory Rate 16 /min 02/06/2024 Height 5ft 8in in 02/06/2024 Weight 238.4 lbs 02/06/2024 BMI 36.24 kg/m2 02/06/2024 Encounters Encounter Location Date Provider Diagnosis [facility] [address] [address] 02/06/2024 JENNIFER STEPHEN Plantar fasciitis, bilateral M72.2 ; Pain in right foot M79.671 and Pain in left foot M79.672 [facility] [address] [address] 01/13/2024 JENNIFER STEPHEN Assessments Encounter Date Diagnosis (ICD Code) Assessment Notes Treatment Notes Treatment Clinical Notes Section Notes 02/06/2024 Pain in right foot (ICD-10 - M79.671) 02/06/2024 Plantar fasciitis, bilateral (ICD-10 - M72.2) [...] agreement with this plan. 02/06/2024 Pain in left foot (ICD-10 - M79.672) Plan Of Treatment Pending Test Test Name Order Date X ray : Foot, left 3v 02/06/2024 X ray : Foot, right 3v 02/06/2024 Insurance Providers Payer Name Payer Address Payer Phone Subscriber Number Group Number Insured Name Patient Relationship to Insured Coverage Start Date Coverage End Date [facility] [address] [place], [place] [phone] [id number] Maciej Easotn Self - patient is the insured Medical (General) History Medical History History ICD Code malignant tumor of colon primary malignant neoplasm of ascending colon hypogonadism acute sinusitis paronychia neck pain cervical radiculopathy hand pain foot pain fatigue fracture of foot, right pain in right foot testosterone level below reference range lateral epicondylitis of left humorous + COVID 2021 COVID vaccinated X 2 (Moderna) Surgical History Surgery Date(Month/Year) colonoscopy 03/26 colon resection 2013 Hospitalization History Reason Date(Month/Year) colon resection 2013
--- OUTSIDE RECORDS SUMMARY | 2024-06-04 16:41 | XMS_ITS ---
Author Organization [facility] Address [address] [place] [address] Care Team Providers Care Elementary School Teacher'S Aide Name Role Phone Stephon Zuniga MD Primary Care Provider Ervin Louis Unavailable [phone] Tim Jeffery Unavailable [phone] Social History Tobacco Use: Social History Observation Description Date Details (start date - stop date) Never Smoker NA - NA Tobacco Use/Smoking Question Answer Notes Are you a: nonsmoker Additional Findings: Tobacco Non-User Current no n-smoker Alcohol Screen Question Answer Notes Did you have a drink containing alcohol in the p ast year? Yes Points 0 Interpretation Negative Tobacco use other than smoking: Question Answer Notes Are you an other tobacco user? No Vital Signs Height 5 ft 8 in in 07/21/2023 Weight 220 lbs 07/21/2023 BMI 33.45 kg/m2 07/21/2023 Encounters Encounter Location Date Provider Diagnosis [address] [address] 07/21/2023 Tim Jeffery Plan Of Treatment No Information Progress Notes * Maciej LARA PDOB:[birth year] (53 yo M)Acc No.[id number]:07/21/2023 Progress Notes Patient:?Maciej LARA Provider:?Tim Jeffery DPM :1970???Age:52 Y???Sex:Male Arthur e:07/21/2023 Address:[address] [place], [place] [id number] Pcp:Stephon Zuniga MD Subjective: * Chief Complaints: * ??? * ROS:?General/Constitutional:?Nausea?denies.?Vomiting?denies.?Hunger Thirst?denies.?Loss appetite?denies.?Chills?denies.?Fatigue?admits.?Fever?denies.?Night Sweats?denies.?Unexplained weight loss?denies.?Unexplained weight gain?denies.?HEENTM:?Dentures?denies.?Dizziness?denies.?Glasses/contacts?admits.?Retinopathy?de nies.?Blurred/double vision?denies.?TMJ?denies.?Discharge/drainage?denies.?Implants?denies.?Sore throat?denies.?Dental implants?denies.?Hard of hearing ?denies.?Difficulty chewing/swallowing/speaking?denies.?Nose bleeds?denies.?Sore mouth?denies.?Respiratory:?On Oxygen?denies.?Pneumonia/pleurisy?denies.?Bronchitis?denies.?Emphysema?denies.?C oughing?denies.?Cough blood?denies.?Shortness of breath?denies.?Wheezing?denies.?Cardiovascular:?Pacemaker?denies.?MVP?denies.?WPW?denies.?CHF?denies.?Heart attack?denies.?Septal defect?denies.?Rapid beat?denies.?Chest pain ?denies.?Atrial Fib.?denies.?Murmur/Palpitations?denies.?Gastrointestinal:?Hemorrhoids?denies.?Stomach/Abdominal pain?denies.?Dark blood stool?denies.?Irritable bowel ?denies.?Constipation?denies.?Diarrhea?denies.?Hematology:?Swelling?denies.?Clots?denies.?Varicose Veins?denies.?Bruising?denies.?Bleeding problem?denies.?Genitourinary:?Blood urine?denies.?Frequent/Painfu/urination/bladder control?denies.?Kidney stones?denies.?Infection (UTI)?denies.?Nephropathy?denies.?sex trans dis (STD)?denies.?Prostate?denies.?Musculoskeletal:?Hammertoes?denies.?Bunions?denies.?Back Pain?denies.?Muscle Cramps/ Resting?denies.?Muscle cramps / walking?denies.?Generalized aches and pains?denies.?Weakness?denies.?Integ.:?Echols?denies.?Scars?denies.?Corns/calluses?denies.?Ingrown nails?denies.?Painful nails?denies.?Open Sores?denies.?Rashes?denies.?Neurologic:?Difficulty sleeping?denies.?Brain disorder?denies.?Numbness?denies.?Balance trouble?denies.?Confusion?denies.?Fainting/blackouts?denies.?Tingling?denies.?Tr emors?denies.? * Medical History:?Asthma, Can cer. * Surgical History:?colon 04/16 . * Family History:?Mother: mark watt.?Father: , diagnosed with Other malignant neoplasm of unspecified site.? * Social History:?Tobacco Use:?Tobacco Use/Smoking?Are you a:?nonsmoker ?Additional Findings: Tobacco Non-User?Current non-smoker ?Tobacco use other than smoking?Are you an other tobacco user??No ???Drugs/Alcohol:?Drugs?Have you used drugs other than those for medical reasons in the past 12 months??No ?Alcohol Screen?Did you have a drink containing alcohol in the past year??Yes ?Points?0 ?Interpretation?Negative ???Miscellaneous:?Caffeine: yes, frequency: 3x a day. ?Marital status: single. Objective: * Vitals:?Ht: 5 ft 8 in, Wt:22 0, BMI:33.45, Shoe size: 10.5 Wide, Ht-cm: 172.72 cm, Wt-k.79 kg. Assessment: Plan: * Treatment: * Images: * The named appointment provid er may or may not be the originator of this progress note, and it is not deemed complete until electronically signed by the appointment provider. Sign off status: Pending * Provider:?Tim Jeffery DPM Date:? 024 Generated for Bessie barnes/Cesar/Robyn on:?06/04/2024 04:41 PM EDT
--- OUTSIDE RECORDS SUMMARY | 2024-06-04 16:42 | XMS_ITS | Patient Health Record ---
Author Organization [facility] Address [address] [place] [address] Care Team Providers Care Dam Tender Name Role Phone Efrain BERUMEN, Stephon Primary Care Provider Ervin Louis Unavailable [phone] Tim Jeffery Unavailable [phone] Allergies No Known Allergies Reason For Referral No Information Social History Tobacco Use: Social History Observation [...] W/U Status Risk Notes Problem Interstitial myositis ([id number]) Interstitial myositis of left foot (M60.172) Active confirmed Vital Signs Height 5 ft 8 in in 06/27/2023 Weight 220 lbs 06/27/2023 BMI 33.45 kg/m2 06/27/2023 Encounters Encounter Location Date Provider Diagnosis [facility] [address] [place] [address] 06/27/2023 Ervin Neri Pain in left foot [...] foot (ICD-10 - M77.52) Plan Of Treatment Pending Test Test Name Order Date X ray : Foot, left 3V 06/27/2023 Insurance Providers Payer Name Payer Address Payer Phone Subscriber Number Group Number Insured Name Patient Relationship to Insured Coverage Start Date Coverage End Date [facility] [address] [place] [address] [phone] [id number] Maciej Easton Self - patient is the insured Medical (General) History Medical History History ICD Code asthma Cancer Surgical History Surgery Date(Month/Year) colon 04/16
--- OUTSIDE RECORDS SUMMARY | 2024-06-04 16:42 | XMS_ITS ---
Author Organization [facility] Address [address] [address] Care Team Providers Care Branch Examiner Name Role Phone TANIKA Delong Primary Care Provider Unavailab PATT Cano Unavailable [phone] REASON FOR VISIT 2 month Medications Medication SIG (Take, Route, Fr equency, Duration) Notes Start Date End Date Status Ibuprofen 800 MG 1 tablet with food o r milk as needed Orally every 8 hrs Not -Taking Testosterone 1.62 % 1 pump to skin in e morning to shoulder, upper arms or abdomen Transdermal Once a day Not-Taking Tadalafil 20 MG 1 tablet as needed O rally Once a day Active Encounters Encounter Location Date Provider Diagnosis [facility] [address] [address] 04/12/2024 PATT MARTÍNEZ Plan Of Treatment No Information Progress Notes * Maciej EASTONDOB:1970 (53 yo M)Acc No.[id number]:04/12/2024 Progress Note Patient:?Maciej EASTON Provider:?Patt Martínez DPM :1970???Age:53 Y???Sex:Male Arthur e:04/12/2024 Phone: Address:[address] [place] [address] RENNY FERNANDEZ [id number] Pcp:TANIKA Delong Subjective: * Chief Complaints: * ???1. 2 month. * Medical History:? * Medications:?Taking Tadalafi l 20 MG Tablet 1 tablet as needed Orally Once a day , Not-Taking Testosterone 1.62 % Gel 1 pump to skin in the morning to shoulder, upper arms or abdomen Transdermal Once a day , Not-Taking Ibuprofen 800 MG Tablet 1 tablet with food or milk as needed Orally every 8 hrs Objective: * Vitals:? Assessment: Plan: * Treatment: * Billing Information: * Visit Code:? * Procedure Codes:? * Electronic signature of WILLIAN MARTÍNEZ D.P.M on 06/04/2024 at 04:41 PM EDT Sign off status: Pending * Provider:Starr Martínez DPM Date:? 04/12/2024 Generated for Bessie barnes/Cesar/Robyn on:?06/04/2024 04:41 PM EDT
--- OUTSIDE RECORDS SUMMARY | 2024-06-04 16:42 | XMS_ITS ---
Author Organization [facility] Address [address] [place] [address] Care Team Providers Care Scrap Metal Collector Name Role Phone Stephon Zuniga MD Primary Care Provider Ervin Louis Unavailable [phone] Tim Jeffery [phone] REASON FOR VISIT EQUITY RESEARCH ANALYST PPWK Entered Encounters Encounter Location Date Provider Diagnosis [facility] [address] [place] [address] 05/27/2023 Tim Jeffery Plan Of Treatment No Information Progress Notes * Maciej LARA PDOB:[birth year] (52 yo M)Acc No.[id number]:05/27/2023 Patient:?Maciej Lara :1970???Age:52 Y???Sex:Male Address:[address] [place] [address], [address] * true * Date:? Generated for Fadyi cameron/Cesar/eTransmitting on:?06/04/2024 04:42 PM EDT
== END 2024-06-04 15:33 | disposition home or self-care (01) ==
LOC: HO.CT 15:32
PROVIDERS: PCP Internal Medicine; Visit Provider Physician Assistant
DX: R05.3 Chronic cough (principal)
CPT/HCPCS: 71250

== ENCOUNTER → 2024-06-04 15:40 | Outpatient (BNV) | payer OTHER, SELFPAY | PROVIDERS: PCP Internal Medicine; Visit Provider Radiology Diagnostic Radiology | DX: J98.09 Other diseases of bronchus, not elsewhere classified (principal); K76.0 Fatty (change of) liver, not elsewhere classified | CPT/HCPCS: 71250 ==

== ENCOUNTER 2024-10-23 07:30 | Outpatient (REF) | payer OTHER, SELFPAY ==
--- NOTE | ~2024-10-23 | CT_ITS ---
CLINICAL HISTORY: CHRONIC COUGH CT chest without contrast Comparison: CT/SR - CT CHEST WO IV CON - 06/04/24 15:[address]/SR - CT CHEST W IV CON - 04/05/24 13:56 EST Findings: The heart size is normal. The visualized thyroid and mediastinum are unremarkable. No evidence of pneumonia or edema. Stable 3 mm nodule within the right posteromedial lung base (image 132). 4 mm subpleural nodule within the right lower lobe anteriorly (image 79) is unchanged. The visualized upper abdomen demonstrates diffusely decreased hepatic density, consistent with hepatic steatosis. No acute fractures. IMPRESSION: 1. No acute process. 2. Stable small pulmonary nodules. 3. Hepatic steatosis. This document has been electronically signed by: Cali Kaur MD on 10/25/2024 13:45:13
--- OUTSIDE RECORDS SUMMARY | 2024-10-23 07:33 | XMS_ITS | Patient Health Record ---
Author Organization [facility] Address [address] [place] [address] Care Team Providers Care Accounting Lecturer Name Role Phone Efrain BERUMEN, Stephon Primary Care Provider Ervin Louis Unavailable [phone] Allergies No Known Allergies Reason For Referral [...] W/U Status Risk Notes Problem Interstitial myositis (97865320) Interstitial myositis of left foot (M60.172) Active confirmed Plan Of Treatment Pending Test Test Name Order Date X ray : Foot, left 3V 06/27/2023 Insurance Providers Payer Name Payer Address Payer Phone Subscriber Number Group Number Insured Name Patient Relationship to Insured Coverage Start Date Coverage End Date [facility] [address] [facility] [place] [address] [id number] Maciej Easton Self - patient is the insured Medical (General) History Medical History History ICD Code asthma Cancer Surgical History Surgery Date(Month/Year) colon 04/16
--- OUTSIDE RECORDS SUMMARY | 2024-10-23 07:33 | XMS_ITS | Clinical Summary ---
Author Organization [address] [facility] Address [address] [place] [address] Phone Care Team Providers Care Hog Feeder Name Role Phone Jeanie Delong Primary Care Provider Social History Tobacco Use Types Packs/Day Years Used Date Smoking Tobacco: Never Assessed Sex and Gender Information Value Date Recorded Sex Assigned at Not on file Legal Sex Male 1:04 AM EST Gender Identity Not on file Sexual Orientation Not on file Plan of Treatment Upcoming Encounters Date Type Department Care Team ([facility] Contact Info) Description 10/27/2024 9:30 AM EDT Consult Orthopedic Surgery - [place] [address] [phone] Gunner Maria, DPRosibel [address] [address] Health Maintenance Due Date Last Done Comments DTaP,Tdap,and Td Vaccines (1 - Tdap) 09/10/1987 Hepatitis B Vaccines (1 of 3 - 19+ 3-dose series) 09/10/1987 Pneumococcal Vaccine: 50+ Ye ars (1 of 1 - PCV) 2018 Zoster Vaccines (1 of 2) 2018 COVID-19 Vaccine ( - 2023-2 5 season) 2023 Depression Screening 03/03/2024 Cholesterol Screening (Lipid Panel) 08/09/2024 Colorectal Cancer Screening: Colonoscopy 08/09/2024 HIV Screening 08/09/2024 Hepatitis C Screening 08/09/2024 Social Influencers of Health Screening 08/09/2024 Influenza Vaccine (#1) 2024 HIB Vaccines Aged Out No longer eligi ble based on patient's age to complete this topic HPV Vaccines Aged Out No longer eligi ble based on patient's age to complete this topic Hepatitis A Vaccines Aged Out No long er eligible based on patient's age to complete this topic IPV Vaccines Aged Out No longer eligi ble based on patient's age to complete this topic MMR Vaccines Aged Out No longer eligi ble based on patient's age to complete this topic Meningococcal ACWY Vaccine Aged Out N o longer eligible based on patient's age to complete this topic Meningococcal B Vaccine Aged Out No l onger eligible based on patient's age to complete this topic RSV Immunization Patients Un douglas 20 months Aged Out No longer eligible b ased on patient's age to complete this topic Varicella Vaccines Aged Out No longer eligible based on patient's age to complete this topic Insurance [facility] Care Teams Hog Feeder Relationship Specialty Start Date End Date Jeanie Delong PA [address] [place] [phone] PCP - General 08/09/24
--- OUTSIDE RECORDS SUMMARY | 2024-10-23 07:33 | XMS_ITS | Encounter Summary ---
Author Organization [facility] Address [address] [address] [place] [address] Phone Care Team Providers Care Director Stars Name Role Phone Maciej Amin MD Primary Care Provider [phone] Stephon Zuniga DO Primary Care Provider [phone] Encounter Details Date Type Department Care Team ([facility] st Contact Info) Description 05/01/2020 Procedure Pass [address] [place] [address] Social History Tobacco Use Types Packs/Day Years Used Date Smoking Tobacco: Never Smokeless Tobacco: Never Sex and Gender Information Value Date Recorded Sex Assigned at Not on file Legal Sex Male 10:25 AM EST Gender Identity Not on file Sexual Orientation Not on file documented as of this encounter Last Filed Vital Signs Vital Sign Reading Time Taken Comments Blood Pressure - - Pulse - - Temperature - - Respiratory Rate - - Oxygen Saturation - - Inhaled Oxygen Concentration - - Weight 97.5 kg (215 lb) 05/02/2020 5:08 PM EST Height 172.7 cm (5' 8 ) 05/02/2020 5:08 PM EST Body Mass Index 32.69 05/02/2020 5:08 PM EST documented in this encounter Plan of Treatment Not on file documented as of this encounter Visit Diagnoses Not on filedocumented in this encounter Additional Health Concerns Infection Onset Date Last Indicated Resolved Time CoV-Risk 03/12/2021 03/12/2021 03/13/2021 5:56 PM EST COVID-19 03/12/2021 03/12/2021 04/02/2021 1:23 AM EST documented as of this encounter Care Teams Director Stars Relationship Specialty Start Date End Date Maciej Amin MD PCP - General Internal Medicine 11/24/19 12/13/21 Stephon Zuniga DO [email or web address] PCP - General Internal Medicine 12/14/21 documented as of this encounter Additional Source Comments The information contained in this document represents components of the legal health record. It is not the complete legal health record.[facility]
--- OUTSIDE RECORDS SUMMARY | 2024-10-23 07:33 | XMS_ITS | Patient Health Record ---
Author Organization [facility] Address [address] [facility] [address] [place] [address] Care Team Providers Care Carrier Operator Name Role Phone TANIKA Delong Primary Care Provider Unavailab JENNIFER Cano Unavailable [phone] Allergies Allergen (clinical drug ingredient) Drug/Non Drug Allergy documented on EMR Reaction Allergy Type Onset Date Status amoxicillin / clavulanate Augmentin diarrhea Drug Allergy Active Results Component Value Reference Range Notes Uric Acid-[id number] Reviewed date:07/16/2024 02:25:56 PM Interpretation: Performing Lab:[facility]alob[facility], [address] [place] [address], [place], Phone - [phone], Director - Edi Notes/Report: Uric Acid 7.8 3.8-8.4 mg/dL Therapeutic ta rget for gout patients: <6.0 Reason For Referral No Information Medications Medication SIG (Take, Route, Fr equency, Duration) Notes Start Date End Date Status Tadalafil 20 MG 1 tablet as needed O rally Once a day Active Testosterone 1.62 % 1 pump to skin in morning to shoulder, upper arms or abdomen Transdermal Once a day Not-Taking Ibuprofen 800 MG 1 tablet with food o r milk as needed Orally every 8 hrs Not -Taking predniSONE 5 MG see instructions Orally see instructions; Duration: 7 days Please take 6 tablets on day 1 and 2, take 5 tablets on day 3, 4 tablets on day 4, 3 tablets on day 5, 2 tablets on day 6, and one tablet on day 7 07/14/2024 Active Trelegy Ellipta Acti ve Problems Problem Type SNOMED Code ICD Code Onset Dates Problem Status W/U Status Risk Notes Problem Plantar fascial fibromatosis (57259028) Plantar fasciitis, bilateral (M72.2) Active confirmed Problem Gout (94074560) Acute gout of right foot, unspecified cause (M10.9) Active confirmed Problem Traumatic arthropathy of the ankle and/or foot (286467470) 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) Active confirmed Vital Signs Heart Rate 80 /min 07/14/2024 Temperature 97.7 degrees Fahrenheit 07/14/2024 Respiratory Rate 16 /min 07/14/2024 Height 5ft 8in in 07/14/2024 Weight 235.2 lbs 07/14/2024 BMI 35.76 kg/m2 07/14/2024 Procedures Procedure Date Ordered Date Performed Result Body Sit e DRAIN/INJECT, SMALL JOINT/BURSA 06/25/2024 N/A Encounters Encounter Location Date Provider Diagnosis [facility] [address] 02/06/2024 JENNIFER STEPHEN Plantar fasciitis, bilateral M72.2 ; Pain in right foot M79.671 and Pain in left foot M79.672 [facility] [address] [address] 06/25/2024 JENNIFER STEPHEN Traumatic arthritis of right foot M12.571 ; Closed fracture of sesamoid bone of right foot, sequela S92.811S and Pain in right foot M79.671 [facility] [address] [address] 07/14/2024 JENNIFER STEPHEN Acute gout of right foot, unspecified cause M10.9 ; Traumatic arthritis of right foot M12.571 ; Closed fracture of sesamoid bone of right foot, sequela S92.811S and Pain in right foot M79.671 [facility] [address] [address] 01/13/2024 JENNIFER STEPHEN [facility] [address] [address] 07/13/2024 JENNIFER STEPHEN [facility] [address] [address] 07/16/2024 JENNIFER STEPHEN [facility] [address] [address] 10/19/2024 JENNIFER STEPHEN Assessments Encounter Date Diagnosis (ICD [...] He is in agreement with this plan. 06/25/2024 Closed fracture of sesamoid bone of right foot, sequela (ICD-10 - S92.811S) 06/25/2024 Traumatic arthritis of right foot (ICD-10 - M12.571) This is an outpatient visit for evaluation and management of a new problem, which required appropriate review of pertinent medical history, review of any previous imaging, review of all previous records, and examination and complex decision-making. Time was 30 minutes spent in review of all these facets including face to face discussion with the patient regarding my findings and in discussion of a current and future treatment plan. 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 We discussed the stretching exercises for the plantar fasciitis created a joint flare due to the arthritis. We discussed that this can present like a gout attack. We discussed that the swelling and pain did improve with ice and ibuprofen, but it is not resolved. I reviewed his imaging and explained that he has a nonunion of the sesamoid fractures, and arthritic changes of the sesamoids caused by the trauma. We discussed using dancer's pads in his boots and a steroid injection. I also discussed the options for custom orthotics and surgical removal of the sesamoids. We discussed the risks with surgery, and the likelihood of future issues. He would like to start with the dancer's pad and the steroid injection. Consent was reviewed and signed by the patient for a steroid injection into the right 1st metatarsophalangeal joint/sesamoids. Pt agreed. 3cc total steroid injection was given into the right foot. Pt tolerated well. Post-Injection instructions were given to the patient. Pt instructed to ice/elevate the foot tonight. Patient to return to the office if the pain returns, he is in agreement with this plan. 07/14/2024 Acute gout of right foot, unspecified cause (ICD-10 - M10.9) This is an outpatient visit for evaluation and management of an existing patient, which required appropriate review of pertinent medical history, review of any previous imaging, review of all previous records, and examination and decision making. Time was 30 minutes spent in review of all these facets including face to face discussion with the patient regarding my findings and in discussion of a current and future treatment plan. At this point, I told the patient it is difficult to rule out a gout attack versus an arthritis flare without more workup. I am ordering a uric acid on the patient today. We discussed gout is a systemic issue and will need to be managed appropriately in order to prevent recurrence. I also emphasized that gout can also happen due to not filtering enough uric acid through his kidneys and there are also some medications that can increase the risk of a gout attack. I will send the uric acid order per patient's request to [facility]. We discussed diet, decreasing alcohol consumption, increasing water intake, and garcia extract. I will wait to see the uric acid results before a possible referral to rheumatology or back to his PCP care team. Letter written for the patient to remain out of work for the rest of the week. 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 We discussed the stretching exercises for the plantar fasciitis created a joint flare due to the arthritis. I reviewed his imaging and explained that he has a nonunion of the sesamoid fractures, and arthritic changes of the sesamoids caused by the trauma. I discussed if his uric acid is normal, then the next steps would be orthotics, possibly taking fish oil and other supplements, and a CT scan of the joint. I will contact the patient once I receive the results. 07/14/2024 Closed fracture of sesamoid bone of right foot, sequela (ICD-10 - S92.811S) 07/14/2024 Pain in right foot (ICD-10 - M79.671) Plan Of Treatment Pending Test Test Name Order Date X ray : Foot, left 3v 02/06/2024 X ray : Foot, right 3v 06/25/2024 X ray : Foot, right 3v 02/06/2024 DRAIN/INJECT, SMALL JOINT/BURSA 06/26/19 Insurance Providers Payer Name Payer Address Payer Phone Subscriber Number Group Number Insured Name Patient Relationship to Insured Coverage Start Date Coverage End Date [facility] [address] [place] [address] [id number] Maciej Easton Self - patient is the insured Medications Administered Medication Instructions Date of Administration Dosage Notes dexAMETHasone Sod Phosphate PF 06/25/2024 0.5 m L Kenalog 06/25/2024 0.5 mL Medical (General) History Medical History History ICD [...]
== END 2024-10-23 07:31 | disposition home or self-care (01) ==
LOC: HO.CT 07:30
PROVIDERS: PCP Internal Medicine; Visit Provider Physician Assistant
DX: R05.3 Chronic cough (principal)
CPT/HCPCS: 71250

== ENCOUNTER → 2024-10-23 07:32 | Outpatient (BNV) | payer OTHER, SELFPAY | PROVIDERS: PCP Internal Medicine; Visit Provider Radiology Diagnostic Radiology | DX: R05.3 Chronic cough (principal); R91.8 Other nonspecific abnormal finding of lung field; K76.0 Fatty (change of) liver, not elsewhere classified | CPT/HCPCS: 71250 ==

== ENCOUNTER → 2024-12-08 09:55 | Outpatient (BNVA) | payer SELFPAY | PROVIDERS: Visit Provider Internal Medicine | DX: Z02.79 Encounter for issue of other medical certificate (principal) ==